=== PATIENT | female | born 1960 ===

== ENCOUNTER 2019-07-10 10:45 | Day surgery (SDC) | payer OTHER ==
--- NOTE | 2019-07-09 09:02 | Short Stay Summary ---
Short Stay Documentation Date of service: 07/10/19 - History H&P: obtained from office - Physical exam General appearance: no acute distress HEENT: Atraumatic Lungs: Normal air movement Neurological: Normal speech - Brief post op/procedure progress note Date of procedure: 07/10/19 (dictation:[id number]) Pre-op diagnosis: symptomatic cholelithiasis; possible chronic cholecystitis Post-op diagnosis: same Procedure: robotic assisted lap barbara IVF 800cc EBL min Anesthesia: GETA Findings: enlarged, thickened GB with adhesions Surgeon: ALTON AVINA [employer] Co[employer] Machine Operator: RANJEET CRUZ Estimated blood loss: minimal Pathology: list (gallbladder) Specimen disposition: to lab Condition: stable - Disposition Condition at discharge: Stable Disposition: - TO HOME OR SELFCARE Short Stay Discharge Plan Activity: advance as tolerated Diet: regular Wound: open to air, keep clean and dry, per your surgeon's advice Special Instructions: no heavy lifting Additional Instructions: Post Operative Instructions Activity: no heavy lifting for next 1 week. May shower tomorrow. Pat dry the wound or wounds. Keep incision sites clean and dry After surgery, start with a light diet. Consider starting with liquids. If you do well, you can advance to a regular diet as you feel comfortable. Apply an ice pack to the wound or wounds for 10-20 minutes at a time. Do this at least 4-5 times a day. You can do it more if he would like. Pain Medication Schedule for the first 2 days after surgery: Gabapentin 600mg twice a day Celebrex (celecoxib) 200mg twice a day Tylenol 500mg four times a day (every 6 hours) After the first 2 days, then take alternating doses of ibuprofen and Tylenol as needed for pain. Take 600 mg of ibuprofen every 6 hours as needed. Take 500 mg of Tylenol every 6 hours as needed. You should alternate these 2 medicines. Make sure you take the ibuprofen with food. It is very important that you use the prescription narcotic pain medicine (hydrocodone) only for very severe pain. Do not take the narcotic medicine before you try using all the medications listed above. We will call you in a couple of days to see how youre doing. If you have any questions or concerns, always feel free to call the clinic ([phone]) at any time. Follow up with: PRIMARY CAREMD [Primary Care Provider] - 7 Days ALTON AVINA MD [Staff Physician] - 14 Days Forms: Outpatient Surgery DC Inst. Prescriptions: Celecoxib [celeBREX] 200 mg PO BID #4 capsule Gabapentin 600 mg PO BID #4 capsule HYDROcodone/APAP 5-325 [Escalon 5-325 mg TAB] 1 each PO Q6HR PRN #6 tablet PRN Reason: Pain
[~2019-07-10 10:45] MED LIST: ACETAMINOPHEN 500 MG TAB PO ONE; CELECOXIB 200 MG CAP PO NR; GABAPENTIN 400 MG CAP PO SCH; HYDROmorphone 1 MG/1 ML INJ ONE; LIDOCAINE MPF (2%) 20 MG/1 ML VIAL 5 ML ONE; PROPOFOL 200 MG/20 ML VIAL IV ONE; ROCURONIUM 50 MG/5 ML INJ IV ONE; SODIUM CHLORIDE 0.9% 1000 ML 1,000 ML IV SCH; ceFAZolin/Water 2 GM/20 ML 2 GM/20 ML SYRINGE IV NR
--- NOTE | 2019-07-10 12:03 | Anesthesia Consultation ---
Anesthesia Consult and Med Hx Date of service: 07/10/19 - Airway Anesthetic Teeth Evaluation: Good ROM Head & Neck: Adequate Mental/Hyoid Distance: Adequate Mallampati Class: Class II Intubation Access Assessment: Good - Pulmonary Exam CTA: Yes - Cardiac Exam Cardiac Exam: RRR - Pre-Operative Health Status ASA Pre-Surgery Classification: ASA2 Proposed Anesthetic Plan: General
--- NOTE | 2019-07-10 12:03 | Anesthesia Day of Surgery ---
Anesthesia Day of Surgery - Day of Surgery Patient Examined: Yes Patient H&P Reviewed: Yes Patient is NPO: Yes
[2019-07-10] MEDS ORDERED: HYDROmorphone 1 MG/1 ML INJ IV PRN (12:04)
[2019-07-10] MEDS ORDERED: ONDANSETRON 4 MG/2 ML INJ IV PRN (12:04)
[2019-07-10] MEDS ORDERED: VANCOMYCIN 1,000 MG in SODIUM CHLORIDE 0.9% 500 ML 500 ML IV ONE (12:09)
[2019-07-10] MEDS ORDERED: ACETAMINOPHEN 500 MG TAB ONE (12:29)
[2019-07-10] MEDS ORDERED: MIDAZOLAM 2 MG/2 ML INJ IV NR (13:00)
[2019-07-10] MEDS ORDERED: VANCOMYCIN/NS 1 GM/250 ML 1 GM/250 ML BAG IV NR (13:00)
[2019-07-10] MEDS ORDERED: LIDOCAINE (1%) 10 MG/1 ML VIAL 20 ML MDV ONE (13:13)
[2019-07-10] MEDS ORDERED: BUPIVACAINE-EPINEPHRINE/PF 0.5%-1:200,000 (30 ML) VIAL INFILTRATI ONE ×2 (13:14→14:26)
[2019-07-10] MEDS ORDERED: WATER FOR IRRIG STERILE 1,500 ML BOTTLE IR ONE (14:28)
[2019-07-10] MEDS ORDERED: LIDOCAINE (1%) 10 MG/1 ML VIAL 20 ML MDV INFILTRATI ONE (14:28)
[2019-07-10] MEDS ORDERED: ONDANSETRON 4 MG/2 ML INJ ONE (14:38)
[2019-07-10] MEDS ORDERED: dexAMETHasone 20 MG/5 ML VIAL ONE (14:38)
[2019-07-10] MEDS ORDERED: PHENYLEPHRINE/NS 1,000 MCG/10 ML SYRINGE (OR USE) IV ONE (14:39)
[2019-07-10] MEDS ORDERED: KETOROLAC 30 MG/1 ML INJ ONE (15:02)
[2019-07-10] MEDS ORDERED: NEOSTIGMINE 10MG/10 ML INJ MDV ONE (15:39)
[2019-07-10] MEDS ORDERED: GLYCOPYRROLATE 0.4 MG/2 ML INJ ONE (15:39)
--- NOTE | 2019-07-10 16:30 | Operative Report ---
PREOPERATIVE DIAGNOSES: 1. Symptomatic cholelithiasis. 2. Possible chronic cholecystitis. POSTOPERATIVE DIAGNOSES: 1. Symptomatic cholelithiasis. 2. Chronic cholecystitis. PROCEDURE: Robotic-assisted laparoscopic cholecystectomy. ATTENDING PHYSICIAN: Mary Jones MD MANAGER ONCOLOGY: Dr. Whitmore. ANESTHESIA: General. ESTIMATED BLOOD LOSS: Minimal. FLUIDS: 800 mL. FINDINGS: Thickened, distended gallbladder. Adhesions were noted around the inferior half of the gallbladder. The adhesions were also noted in the right flank region associated with the colon that was from the gallbladder. No other abnormalities were seen. SPECIMENS: Gallbladder. DRAINS: None. COMPLICATIONS: None. DISPOSITION: Stable, transferred to Recovery. INDICATIONS: This is a 58-year-old female who presented to the office with complaints of chronic right upper quadrant, right flank pain for the last few months. Ultrasound examination showed gallstones. The patient did have right upper quadrant pain on exam and history was consistent. The patient was assessed to have symptomatic cholelithiasis and possible chronic cholecystitis. The patient is assessed to be in need for cholecystectomy. Procedure, risks, benefits were explained to the patient. Risks included but were not limited to infection, bleeding, pain, injury to surrounding structures, possible need for further procedures in the future. The patient understood and consented. Please note we did use a telephone claims vice president. OPERATIVE NOTE: The patient was brought to the operating room and placed on the table in supine position. After adequate general anesthesia was established, the patient was prepped and draped in the usual sterile fashion. Antibiotics had been administered. At the start of the case, SCDs were in place. Time-out was called. I began by placing a Veress needle in left upper quadrant. I was able to insufflate on the first attempt. This was then replaced with a 5-mm port using the Optiview technique, I entered the peritoneal cavity safely. There was no injury to the underlying structures. Under direct vision, a 12-mm port was placed in the umbilicus. Two 8-mm ports were placed in the right side of the abdomen and the 5-mm port was replaced with an 8. The patient was placed in reverse Trendelenburg, rotated to the left. Robot was docked. I began by taking down the adhesions around the inferior half of the gallbladder. Once I got down to Shannon's pouch, we then began our dissection of the triangle of Calot. The cystic duct was found to be very short. We could see the common duct very clearly. I was able to get a very large critical view. The cystic artery was noted to be to the right of the duct. We dissected that out and placed clips on either end and divided it sharply. I then very clearly dissected out the cystic duct with the very large critical view that went half way up the gallbladder. There was no question as to what we had. Two clips were placed distally, 1 proximally in relation to gallbladder. Cystic duct was divided. We had excellent hemostasis. There was no bile leak. We continued on by dissecting the gallbladder off the bed, it was placed in EndoCatch bag left on the side. Robot was undocked. We examined everything again and everything was dry, no bile was leaking. Everything looked good. I removed the Ray-Sandra that had been placed at the beginning of the case and then removed the EndoCatch bag from the umbilical port site. Using the Som-Av closure device, we placed 2 stitches at the umbilicus and closed the fascia. Additional local was injected, 4-0 Monocryl subcuticular stitches were then placed. Skin was cleaned and dried. Dermabond was placed. The patient tolerated the procedure well. There were no complications. All counts were correct at the end of the case. I went to go speak with family, but they were not present in the waiting area. JOB# [id number] RENAN/PERNELL
[2019-07-10 16:39] VITALS: BP 124/66
--- NOTE | 2019-07-10 17:26 | Post Anesthesia Evaluation ---
- Post Anesthesia Evaluation Patient Participated: Yes Airway Patent: Yes Stable Respiratory Function: Yes Nausea/Vomiting: No Temp > 96.8F: Yes Pain Manageable: Yes Adequeate Hydration: Yes Anesthesia Complications: No Block Receding Appropriately: Not Applicable Patient on Ventilator: No
== END 2019-07-10 10:46 | disposition home or self-care (01) ==
LOC: OR 10:45
PROVIDERS: ATTEND Surgery
DX: K80.10 Calculus of gallbladder with chronic cholecystitis without obstruction (principal); K21.9 Gastro-esophageal reflux disease without esophagitis; M19.90 Unspecified osteoarthritis, unspecified site; F32.9 Major depressive disorder, single episode, unspecified; F41.9 Anxiety disorder, unspecified; Z98.890 Other specified postprocedural states; Z88.0 Allergy status to penicillin; Z79.899 Other long term (current) drug therapy; Z98.891 History of uterine scar from previous surgery; Z98.51 Tubal ligation status
CPT/HCPCS: 47562; 88304; J1100; J1170; J1885; J2250; J2370; J2405; J2704; J2710; J3370; J7030; S2900; J7040